=== PATIENT | male | born 1970 | race Hispanic/Latino ===

== ENCOUNTER 2021-10-05 13:06 | Outpatient (CLI) | payer OTHER | END 2021-10-05 13:07 | disposition home or self-care (01) | LOC: CSHWCC 13:06 | PROVIDERS: ATTEND Nurse Practitioner Family | DX: E11.621 Type 2 diabetes mellitus with foot ulcer (principal); L97.422 Non-pressure chronic ulcer of left heel and midfoot with fat layer exposed; E11.22 Type 2 diabetes mellitus with diabetic chronic kidney disease; N18.2 Chronic kidney disease, stage 2 (mild); E11.39 Type 2 diabetes mellitus with other diabetic ophthalmic complication; H40.9 Unspecified glaucoma ==

== ENCOUNTER 2021-10-13 13:12 | Outpatient (CLI) | END 2021-10-13 13:13 | disposition home or self-care (01) | LOC: CSHWCC 13:12 | PROVIDERS: ATTEND Nurse Practitioner Family | DX: E11.621 Type 2 diabetes mellitus with foot ulcer (principal); L97.422 Non-pressure chronic ulcer of left heel and midfoot with fat layer exposed; E11.22 Type 2 diabetes mellitus with diabetic chronic kidney disease; H40.9 Unspecified glaucoma; N18.2 Chronic kidney disease, stage 2 (mild) ==

== ENCOUNTER 2021-10-19 08:43 | Outpatient (CLI) | END 2021-10-19 08:44 | disposition home or self-care (01) | LOC: CSHWCC 08:43 | PROVIDERS: ATTEND Nurse Practitioner Family | DX: E11.621 Type 2 diabetes mellitus with foot ulcer (principal); L97.422 Non-pressure chronic ulcer of left heel and midfoot with fat layer exposed; E11.22 Type 2 diabetes mellitus with diabetic chronic kidney disease; N18.2 Chronic kidney disease, stage 2 (mild); H40.9 Unspecified glaucoma | CPT/HCPCS: 29445; 99213; G0463 ==

== ENCOUNTER → 2021-10-22 | Outpatient (CLI) | payer SELFPAY | LOC: CSHWCC 10-21 14:10 | PROVIDERS: ATTEND Nurse Practitioner Family | DX: E11.621 Type 2 diabetes mellitus with foot ulcer (principal); L97.422 Non-pressure chronic ulcer of left heel and midfoot with fat layer exposed; H40.9 Unspecified glaucoma; E11.22 Type 2 diabetes mellitus with diabetic chronic kidney disease; N18.2 Chronic kidney disease, stage 2 (mild) | CPT/HCPCS: 29445; 99213; G0463 ==

== ENCOUNTER 2021-11-01 08:07 | Outpatient (CLI) | payer OTHER, SELFPAY | END 2021-11-01 08:08 | disposition home or self-care (01) | LOC: CSHWCC 08:07 | PROVIDERS: ATTEND Nurse Practitioner Family | DX: E11.621 Type 2 diabetes mellitus with foot ulcer (principal); L97.429 Non-pressure chronic ulcer of left heel and midfoot with unspecified severity ==

== ENCOUNTER 2021-11-16 08:05 | Outpatient (CLI) | payer OTHER | END 2021-11-16 08:06 | disposition home or self-care (01) | LOC: CSHWCC 08:05 | PROVIDERS: ATTEND Nurse Practitioner Family | DX: E11.621 Type 2 diabetes mellitus with foot ulcer (principal); L97.422 Non-pressure chronic ulcer of left heel and midfoot with fat layer exposed | CPT/HCPCS: 29445 ==

== ENCOUNTER 2021-11-23 08:01 | Outpatient (CLI) | payer OTHER | END 2021-11-23 08:02 | disposition home or self-care (01) | LOC: CSHWCC 08:01 | PROVIDERS: ATTEND Nurse Practitioner Family | DX: E11.621 Type 2 diabetes mellitus with foot ulcer (principal); L97.429 Non-pressure chronic ulcer of left heel and midfoot with unspecified severity | CPT/HCPCS: 99213; G0463 ==

== ENCOUNTER 2021-11-30 08:07 | Outpatient (CLI) | payer OTHER | END 2021-11-30 08:08 | disposition home or self-care (01) | LOC: CSHWCC 08:07 | PROVIDERS: ATTEND Nurse Practitioner Family | DX: E11.621 Type 2 diabetes mellitus with foot ulcer (principal); L97.429 Non-pressure chronic ulcer of left heel and midfoot with unspecified severity ==

== ENCOUNTER 2021-12-07 08:08 | Outpatient (CLI) | payer OTHER | END 2021-12-07 08:09 | disposition home or self-care (01) | LOC: CSHWCC 08:08 | PROVIDERS: ATTEND Nurse Practitioner Family | DX: E11.621 Type 2 diabetes mellitus with foot ulcer (principal); L97.429 Non-pressure chronic ulcer of left heel and midfoot with unspecified severity ==

== ENCOUNTER 2022-01-04 08:11 | Outpatient (CLI) | payer SELFPAY | END 2022-01-04 08:12 | disposition home or self-care (01) | LOC: CSHWCC 08:11 | PROVIDERS: ATTEND Nurse Practitioner Family | DX: E11.621 Type 2 diabetes mellitus with foot ulcer (principal); L97.429 Non-pressure chronic ulcer of left heel and midfoot with unspecified severity; R60.0 Localized edema | CPT/HCPCS: 29445 ==

== ENCOUNTER 2022-01-20 08:12 | Outpatient (CLI) | payer OTHER | END 2022-01-20 08:13 | disposition home or self-care (01) | LOC: CSHWCC 08:12 | PROVIDERS: ATTEND Nurse Practitioner Family | DX: E11.621 Type 2 diabetes mellitus with foot ulcer (principal); L97.429 Non-pressure chronic ulcer of left heel and midfoot with unspecified severity; R60.0 Localized edema | CPT/HCPCS: 29445 ==

== ENCOUNTER 2022-01-27 08:05 | Outpatient (CLI) | payer SELFPAY | END 2022-01-27 08:06 | disposition home or self-care (01) | LOC: CSHWCC 08:05 | PROVIDERS: ATTEND Nurse Practitioner Family | DX: E11.621 Type 2 diabetes mellitus with foot ulcer (principal); L97.509 Non-pressure chronic ulcer of other part of unspecified foot with unspecified severity; R60.0 Localized edema | CPT/HCPCS: 29445 ==

== ENCOUNTER 2022-02-03 08:11 | Outpatient (CLI) | payer SELFPAY | END 2022-02-03 08:12 | disposition home or self-care (01) | LOC: CSHWCC 08:11 | PROVIDERS: ATTEND Nurse Practitioner Family | DX: E11.621 Type 2 diabetes mellitus with foot ulcer (principal); L97.429 Non-pressure chronic ulcer of left heel and midfoot with unspecified severity; R60.0 Localized edema ==

== ENCOUNTER 2022-02-17 08:12 | Outpatient (CLI) | payer SELFPAY | END 2022-02-17 08:13 | disposition home or self-care (01) | LOC: CSHWCC 08:12 | PROVIDERS: ATTEND Nurse Practitioner Family | DX: R60.0 Localized edema (principal) | CPT/HCPCS: 36416; 99212; G0463 ==

== ENCOUNTER 2022-02-24 08:07 | Outpatient (CLI) | payer SELFPAY | END 2022-02-24 08:08 | disposition home or self-care (01) | LOC: CSHWCC 08:07 | PROVIDERS: ATTEND Nurse Practitioner Family | DX: R60.0 Localized edema (principal) | CPT/HCPCS: 99213; G0463 ==

== ENCOUNTER 2022-03-10 08:07 | Outpatient (CLI) | payer SELFPAY | END 2022-03-10 08:08 | disposition home or self-care (01) | LOC: CSHWCC 08:07 | PROVIDERS: ATTEND Nurse Practitioner Family | DX: E11.621 Type 2 diabetes mellitus with foot ulcer (principal); L97.509 Non-pressure chronic ulcer of other part of unspecified foot with unspecified severity; R60.0 Localized edema | CPT/HCPCS: 99213; G0463 ==

== ENCOUNTER 2022-03-17 08:07 | Outpatient (CLI) | payer SELFPAY | END 2022-03-17 08:08 | disposition home or self-care (01) | LOC: CSHWCC 08:07 | PROVIDERS: ATTEND Nurse Practitioner Family | DX: E11.621 Type 2 diabetes mellitus with foot ulcer (principal); L97.429 Non-pressure chronic ulcer of left heel and midfoot with unspecified severity; R60.0 Localized edema | CPT/HCPCS: 29445 ==

== ENCOUNTER 2022-03-24 08:04 | Outpatient (CLI) | payer OTHER | END 2022-03-24 08:05 | disposition home or self-care (01) | LOC: CSHWCC 08:04 | PROVIDERS: ATTEND Nurse Practitioner Family | DX: E11.621 Type 2 diabetes mellitus with foot ulcer (principal); L97.529 Non-pressure chronic ulcer of other part of left foot with unspecified severity; R60.0 Localized edema | CPT/HCPCS: 36416; 99213; G0463 ==

== ENCOUNTER 2022-04-20 08:08 | Outpatient (CLI) | payer SELFPAY | END 2022-04-20 08:09 | disposition home or self-care (01) | LOC: CSHWCC 08:08 | PROVIDERS: ATTEND Nurse Practitioner Family | DX: E11.621 Type 2 diabetes mellitus with foot ulcer (principal); R60.0 Localized edema | CPT/HCPCS: 11042; 99212; G0463 ==

== ENCOUNTER 2022-06-22 08:47 | Outpatient (CLI) | payer SELFPAY | END 2022-06-22 08:48 | disposition home or self-care (01) | LOC: CSHWCC 08:47 | PROVIDERS: ATTEND Preventive Medicine Undersea and Hyperbaric Medicine | DX: E11.621 Type 2 diabetes mellitus with foot ulcer (principal); L97.529 Non-pressure chronic ulcer of other part of left foot with unspecified severity | CPT/HCPCS: 29445 ==

== ENCOUNTER 2022-06-29 08:09 | Outpatient (CLI) | payer SELFPAY | END 2022-06-29 08:10 | disposition home or self-care (01) | LOC: CSHWCC 08:09 | PROVIDERS: ATTEND Preventive Medicine Undersea and Hyperbaric Medicine | DX: E11.621 Type 2 diabetes mellitus with foot ulcer (principal); L97.429 Non-pressure chronic ulcer of left heel and midfoot with unspecified severity; R60.0 Localized edema | CPT/HCPCS: 29445 ==

== ENCOUNTER 2022-07-13 08:09 | Outpatient (CLI) | payer OTHER | END 2022-07-13 08:10 | disposition home or self-care (01) | LOC: CSHWCC 08:09 | PROVIDERS: ATTEND Preventive Medicine Undersea and Hyperbaric Medicine | DX: E11.621 Type 2 diabetes mellitus with foot ulcer (principal); L97.509 Non-pressure chronic ulcer of other part of unspecified foot with unspecified severity; R60.0 Localized edema ==

== ENCOUNTER 2022-07-20 08:36 | Outpatient (CLI) | payer SELFPAY | END 2022-07-20 08:37 | disposition home or self-care (01) | LOC: CSHWCC 08:36 | PROVIDERS: ATTEND Preventive Medicine Undersea and Hyperbaric Medicine | DX: E11.621 Type 2 diabetes mellitus with foot ulcer (principal); L97.429 Non-pressure chronic ulcer of left heel and midfoot with unspecified severity; R60.0 Localized edema | CPT/HCPCS: 29445 ==

== ENCOUNTER 2022-07-29 09:02 | Outpatient (CLI) | payer SELFPAY | END 2022-07-29 09:03 | disposition home or self-care (01) | LOC: CSHWCC 09:02 | PROVIDERS: ATTEND Nurse Practitioner Family | DX: E11.621 Type 2 diabetes mellitus with foot ulcer (principal); L97.429 Non-pressure chronic ulcer of left heel and midfoot with unspecified severity; R60.0 Localized edema | CPT/HCPCS: 99213; G0463 ==

== ENCOUNTER 2022-08-05 08:52 | Outpatient (CLI) | payer SELFPAY | END 2022-08-05 08:53 | disposition home or self-care (01) | LOC: CSHWCC 08:52 | PROVIDERS: ATTEND Nurse Practitioner Family | DX: E11.621 Type 2 diabetes mellitus with foot ulcer (principal); L97.509 Non-pressure chronic ulcer of other part of unspecified foot with unspecified severity ==

== ENCOUNTER 2022-08-12 08:41 | Outpatient (CLI) | payer OTHER | END 2022-08-12 08:42 | disposition home or self-care (01) | LOC: CSHWCC 08:41 | PROVIDERS: ATTEND Nurse Practitioner Family | DX: E11.621 Type 2 diabetes mellitus with foot ulcer (principal); L97.429 Non-pressure chronic ulcer of left heel and midfoot with unspecified severity; R60.0 Localized edema | CPT/HCPCS: 29445 ==

== ENCOUNTER 2022-08-19 10:45 | Outpatient (CLI) | payer SELFPAY | END 2022-08-19 10:46 | disposition home or self-care (01) | LOC: CSHWCC 10:45 | PROVIDERS: ATTEND Nurse Practitioner Family | DX: E11.621 Type 2 diabetes mellitus with foot ulcer (principal); L97.429 Non-pressure chronic ulcer of left heel and midfoot with unspecified severity; R60.0 Localized edema | CPT/HCPCS: 29445 ==

== ENCOUNTER 2022-08-29 08:45 | Outpatient (CLI) | payer SELFPAY | END 2022-08-29 08:46 | disposition home or self-care (01) | LOC: CSHWCC 08:45 | PROVIDERS: ATTEND Nurse Practitioner Family | DX: E11.621 Type 2 diabetes mellitus with foot ulcer (principal); L97.509 Non-pressure chronic ulcer of other part of unspecified foot with unspecified severity; R60.0 Localized edema | CPT/HCPCS: 29445 ==

== ENCOUNTER 2022-09-05 08:14 | Outpatient (CLI) | payer SELFPAY | END 2022-09-05 08:15 | disposition home or self-care (01) | LOC: CSHWCC 08:14 | PROVIDERS: ATTEND Nurse Practitioner Family | DX: E11.621 Type 2 diabetes mellitus with foot ulcer (principal); L97.509 Non-pressure chronic ulcer of other part of unspecified foot with unspecified severity; R60.0 Localized edema | CPT/HCPCS: 99213; G0463 ==

== ENCOUNTER 2022-09-12 08:11 | Outpatient (CLI) | payer SELFPAY | END 2022-09-12 08:12 | disposition home or self-care (01) | LOC: CSHWCC 08:11 | PROVIDERS: ATTEND Nurse Practitioner Family | DX: E11.621 Type 2 diabetes mellitus with foot ulcer (principal); L97.429 Non-pressure chronic ulcer of left heel and midfoot with unspecified severity; R60.0 Localized edema | CPT/HCPCS: 29445 ==

== ENCOUNTER 2022-10-14 08:13 | Outpatient (CLI) | payer OTHER | END 2022-10-14 08:14 | disposition home or self-care (01) | LOC: CSHWCC 08:13 | PROVIDERS: ATTEND Nurse Practitioner Family | DX: E11.621 Type 2 diabetes mellitus with foot ulcer (principal); L97.429 Non-pressure chronic ulcer of left heel and midfoot with unspecified severity; R60.0 Localized edema | CPT/HCPCS: 29445; 99213; G0463 ==

== ENCOUNTER 2022-10-21 11:07 | Outpatient (CLI) | payer SELFPAY | END 2022-10-21 11:08 | disposition home or self-care (01) | LOC: CSHWCC 11:07 | PROVIDERS: ATTEND Nurse Practitioner Family | DX: E11.621 Type 2 diabetes mellitus with foot ulcer (principal); L97.429 Non-pressure chronic ulcer of left heel and midfoot with unspecified severity; R60.0 Localized edema | CPT/HCPCS: 99213; G0463 ==

== ENCOUNTER 2023-10-19 14:03 | Outpatient (CLI) | payer BC, SELFPAY | END 2023-10-19 14:04 | disposition home or self-care (01) | LOC: CSHWCC 14:03 | PROVIDERS: ATTEND Preventive Medicine Undersea and Hyperbaric Medicine | DX: L97.408 Non-pressure chronic ulcer of unspecified heel and midfoot with other specified severity (principal); E08.621 Diabetes mellitus due to underlying condition with foot ulcer; M86.8X7 Other osteomyelitis, ankle and foot | CPT/HCPCS: 99214; G0463 ==

== ENCOUNTER 2023-11-08 16:43 | Outpatient (CLI) | payer BC | END 2023-11-08 16:44 | disposition home or self-care (01) | LOC: CSHWCC 16:43 | PROVIDERS: ATTEND Nurse Practitioner Family | DX: L97.408 Non-pressure chronic ulcer of unspecified heel and midfoot with other specified severity (principal); M86.8X7 Other osteomyelitis, ankle and foot; E08.621 Diabetes mellitus due to underlying condition with foot ulcer | CPT/HCPCS: 97597 ==

== ENCOUNTER 2023-12-07 16:06 | Outpatient (CLI) | payer BC | END 2023-12-07 16:07 | disposition home or self-care (01) | LOC: CSHWCC 16:06 | PROVIDERS: ATTEND Nurse Practitioner Family | DX: L97.408 Non-pressure chronic ulcer of unspecified heel and midfoot with other specified severity (principal); E08.621 Diabetes mellitus due to underlying condition with foot ulcer; M86.8X7 Other osteomyelitis, ankle and foot | CPT/HCPCS: 99214; G0463 ==